=== PATIENT | female | born 1975 | race Caucasian/White ===

== ENCOUNTER 2016-09-24 22:18 | Emergency (ER) | payer OTHER ==
[~2016-09-24] VITALS: Ht 157.5 cm; Wt 63.5 kg
--- NOTE | 2016-09-24 22:28 | ED UPPER/LOWER EXTREMITY COMPL ---
History of Present Illness General Chief Complaint: Shoulder Injury Stated Complaint: INJURY TO L SHOULDER S/P FALL AN HOUR [employer] PILOT Source: patient Exam Limitations: no limitations Vital Signs & Intake/Output Vital Signs & Intake/Output Vital Signs Date Time Temp Pulse Resp B/P Pulse O2 O2 Flow FiO2 Ox Delivery Rate 09/24 2345 83 16 115/84 100 Nasal 3.0L Cannula 09/24 2330 89 16 112/69 100 Nasal 3.0L Cannula 09/24 2320 97.2 90 20 122/69 100 Nasal 2.0L Cannula 09/24 2225 98.0 85 16 133/80 98 Room Air Room Air ED Intake and Output 09/25 0000 09/24 1200 Intake Total 0 Output Total Balance 0 Intake, Oral 0 Patient 140 lb Weight Allergies Coded Allergies: NO KNOWN ALLERGIES (09/24/16) Reconcile Medications Ibuprofen 800 MG TABLET 1 TAB PO TID PRN PAIN Oxycodone HCl/Acetaminophen (Percocet 5-325 MG Tablet) 5 MG-325 MG TABLET 1 TAB PO 4XDP PRN PAIN TEN...[id number] Triage Note: PT TO TRIAGE WITH LEFT SHOULDER/ UPPER ARM PAIN AFTER TRIPPING ON A TOY. PT STATES SHE HAS PAIN TO LEFT RIBS ALSO. PT STATES SHE HAS TINGLING AND CHANGE IN SENSATION TO LEFT HAND. Triage Nurses Notes Reviewed? yes Onset: Abrupt Duration: minute(s): Timing: single episode today Severity: moderate, severe Pain/Injury Location: Left: Shoulder. Method of Injury: fall Modifying Factors: Worsens With: movement. Associated Symptoms: pain, deformity : No Patient currently breastfeeds: No HPI: 41 yo woman in prior good health presents after a mechanical fall and presents with left shoulder pain. "I was in the play room and tripped on some toys.... I fell and landed on my shoulder... I think I popped it out." She notes no other injury. She did not hit her head. She denies . Past History Travel History Traveled to [place] past 21 day No Medical History Any Pertinent Medical History? see below for history Neurological: NONE EENT: NONE Cardiovascular: NONE Respiratory: NONE Gastrointestinal: NONE Hepatic: NONE Renal: NONE Musculoskeletal: NONE Psychiatric: NONE Endocrine: NONE Blood Disorders: NONE Cancer(s): NONE LEAD MINER BLASTING/Reproductive: NONE Tetanus Vaccine: 10/08/12 Surgical History Surgical History: none Psychosocial History What is your primary language Indian Tobacco Use: Never used ETOH Use: denies use Illicit Drug Use: denies illicit drug use Family History Hx Contributory? No Review of Systems Review of Systems Constitutional: Reports: no symptoms. EENTM: Reports: no symptoms. Respiratory: Reports: no symptoms. Cardiovascular: Reports: no symptoms. Gastrointestinal/Abdominal: Reports: no symptoms. Genitourinary: Reports: no symptoms. Musculoskeletal: Reports: no symptoms. Skin: Reports: no symptoms. Neurological/Psychological: Reports: no symptoms. Hematologic/Endocrine: Reports: no symptoms. Immunological: Reports: no symptoms. All Other Systems: Reviewed and Negative Physical Exam Physical Exam General Appearance: well developed/nourished, mild distress Head: atraumatic Eyes: Bilateral: PERRL, EOMI. Ears, Nose, Throat: normal pharynx, normal ENT inspection, hearing grossly normal Neck: normal inspection, supple Cardiovascular/Respiratory: regular rate/rhythm Back: normal inspection Shoulder Left: decreased range of motion, deformity noted, 2+distal pulses. ROM of left wrist and elbow are intact. Skin: intact, normal color, warm/dry Lymphatic: no anterior cervical al Progress Differential Diagnosis: contusion, dislocation, fracture Plan of Care: Orders Procedure Date/time Status XRY-SHOULDER COMPLETE-LEFT 09/24 2328 Active Diagnostic Imaging: Viewed by Me: Radiology Read. Discussed w/RAD: Radiology Read. Radiology Impression: LEFT SHOULDER... ANTERIOR DISLOCATION, left shoulder #2 - successful reduction Comments: PATIENT: GILBERTO SU PRESENT AGE: 41 PATIENT ACCOUNT NO: [id number] : 77 LOCATION: [facility] ORDERING PHYSICIAN: HERMELINDA GOLDSTEIN MD SERVICE DATE: 09/24/16 EXAM TYPE: RAD - XRY-SHOULDER COMPLETE-LEFT EXAMINATION: XR SHOULDER, LEFT CLINICAL INFORMATION: Left shoulder reduction COMPARISON: 09/24/2016 TECHNIQUE: Single AP view of the left shoulder FINDINGS: The previous glenohumeral dislocation has been reduced. The humeral head articulates appropriately with the glenoid. The ossific fragment seen on the prior study is not visualized on the current image, likely secondary to the projection. The acromial clavicular joint is intact. The visualized lung is clear. IMPRESSION: Reduction of the previous left glenohumeral dislocation with anatomic alignment. DICTATED BY: MARINA TYSON MD DATE/TIME DICTATED:09/25/1626 TEAM FACILITATOR:NEY DATE/TIME TRANSCRIBED:09/25/1626 CONFIDENTIAL, DO NOT COPY WITHOUT APPROPRIATE AUTHORIZATION. <Electronically signed in Other Vendor System> SIGNED BY: MARINA TYSON MD 09/25 0031 PATIENT: GILBERTO SU PRESENT AGE: 41 PATIENT ACCOUNT NO: [id number] : 77 LOCATION: [facility] ORDERING PHYSICIAN: HERMELINDA GOLDSTEIN MD SERVICE DATE: 09/24/16 EXAM TYPE: RAD - XRY-SHOULDER COMPLETE-LEFT EXAMINATION: XR SHOULDER, LEFT CLINICAL INFORMATION: Left shoulder pain after fall COMPARISON: None. TECHNIQUE: Two views of the left shoulder FINDINGS: There is a glenohumeral dislocation. The humeral head is displaced anteriorly in relation to the glenoid. An ossific fragment is noted adjacent to the greater tuberosity of the humeral head. The acromioclavicular joint is intact. The visualized lung is clear. IMPRESSION: Anterior shoulder dislocation. A fracture fragment is also partially visualized. Uncertain donor site, though the humeral head is favored. DICTATED BY: MARINA TYSON MD DATE/TIME DICTATED:09/24/162308 TEAM FACILITATOR:NEY DATE/TIME TRANSCRIBED:09/24/162308 CONFIDENTIAL, DO NOT COPY WITHOUT APPROPRIATE AUTHORIZATION. <Electronically signed in Other Vendor System> SIGNED BY: MARINA TYSON MD 09/24 2316 Departure Departure Disposition: HOME OR SELF CARE Condition: Stable Clinical Impression Primary Impression: Dislocation of left shoulder joint Referrals: OSCAR SINGLETARY,VERN Upton (PCP/Family) Departure Forms: Customer Survey General Discharge Information Prescriptions: Current Visit Scripts Oxycodone HCl/Acetaminophen (Percocet 5-325 MG Tablet) 1 TAB PO 4XDP PRN PAIN #10 TAB TEN...[id number] Ibuprofen 1 TAB PO TID PRN PAIN #30 TAB Comments 09/25/16, 1:20am.... pt feeling better after reduction... awake and alert, ambulates well.... pt safe for discharge and will follow up with orthopedics... Pt given pain medications and instructed to wear sling. Procedures Joint Reduction Joint Reduction Site: shoulder (L) Conscious Sedation: conscious sedation, performed by me Reduction Attempts: 1 Pre-Procedure NV Exam: Yes Post-Procedure NV Exam: Yes Post Joint Reduction Film: joint reduced
--- NOTE | 2016-09-24 23:16 | RADIOLOGY REPORT ---
EXAMINATION: XR SHOULDER, LEFT CLINICAL INFORMATION: Left shoulder pain after fall COMPARISON: None. TECHNIQUE: Two views of the left shoulder FINDINGS: There is a glenohumeral dislocation. The humeral head is displaced anteriorly in relation to the glenoid. An ossific fragment is noted adjacent to the greater tuberosity of the humeral head. The acromioclavicular joint is intact. The visualized lung is clear. IMPRESSION: Anterior shoulder dislocation. A fracture fragment is also partially visualized. Uncertain donor site, though the humeral head is favored.
[2016-09-24] MEDS ORDERED: PROVENTIL HFA6.7 GM INH (23:47)
[2016-09-24] MEDS ORDERED: PREDNISONE50 M1 PO (23:47)
--- NOTE | 2016-09-25 00:31 | RADIOLOGY REPORT ---
EXAMINATION: XR SHOULDER, LEFT CLINICAL INFORMATION: Left shoulder reduction COMPARISON: 09/24/2016 TECHNIQUE: Single AP view of the left shoulder FINDINGS: The previous glenohumeral dislocation has been reduced. The humeral head articulates appropriately with the glenoid. The ossific fragment seen on the prior study is not visualized on the current image, likely secondary to the projection. The acromial clavicular joint is intact. The visualized lung is clear. IMPRESSION: Reduction of the previous left glenohumeral dislocation with anatomic alignment.
[2016-09-25] MEDS ORDERED: IBUPROFEN800 M1 PO ×2 (00:42→00:44)
[2016-09-25] MEDS ORDERED: PERCOCET 5-3251 EACH PO (00:42)
[2016-09-25 01:33] VITALS: BP 115/69
== END 2016-09-25 01:35 ==
LOC: ERH 22:18
DX: S43.006A Unspecified dislocation of unspecified shoulder joint, initial encounter (principal); W18.09XA Striking against other object with subsequent fall, initial encounter
CPT/HCPCS: 73030-LT; 96374; 96375